=== PATIENT | female | born 1980 | race Caucasian/White ===

== ENCOUNTER 2021-11-25 12:35 | Emergency (ER) | payer OTHER | END 2021-11-25 16:38 | disposition home or self-care (01) | LOC: JP.ED 12:35 | DX: S92.352A Displaced fracture of fifth metatarsal bone, left foot, initial encounter for closed fracture (principal); Z87.891 Personal history of nicotine dependence; W10.8XXA Fall (on) (from) other stairs and steps, initial encounter | CPT/HCPCS: 73630-26-LT; 73630-LT; 99282; 99283-25 ==